=== PATIENT | female | born 1980 | race Caucasian/White ===

== ENCOUNTER 2017-11-16 14:01 | Outpatient (CLI) | payer MEDICAID ==
[~2017-11-16 14:01] MED LIST: TRAM50TA2 PO
[2017-11-16 14:12] VITALS: BP 109/60
== END 2017-11-16 14:55 | disposition home or self-care (01) ==
LOC: ORTHO 14:01
PROVIDERS: ATTEND Nurse Practitioner Family
DX: S52.502D Unspecified fracture of the lower end of left radius, subsequent encounter for closed fracture with routine healing (principal); S63.00 Unspecified subluxation and dislocation of wrist and hand; S82.122D Displaced fracture of lateral condyle of left tibia, subsequent encounter for closed fracture with routine healing; F12.90 Cannabis use, unspecified, uncomplicated; F17.210 Nicotine dependence, cigarettes, uncomplicated; Z88.5 Allergy status to narcotic agent; X58.XXXD Exposure to other specified factors, subsequent encounter
CPT/HCPCS: 29260; 73100; 73564

== ENCOUNTER 2017-12-07 14:21 | Outpatient (CLI) | payer MEDICAID ==
[2017-12-07 14:29] VITALS: BP 125/76
== END 2017-12-07 14:55 | disposition home or self-care (01) ==
LOC: ORTHO 14:21
PROVIDERS: ATTEND Nurse Practitioner Family
DX: S63.00 Unspecified subluxation and dislocation of wrist and hand (principal); S52.502D Unspecified fracture of the lower end of left radius, subsequent encounter for closed fracture with routine healing; S82.122G Displaced fracture of lateral condyle of left tibia, subsequent encounter for closed fracture with delayed healing; M17.12 Unilateral primary osteoarthritis, left knee; M19.032 Primary osteoarthritis, left wrist; F17.210 Nicotine dependence, cigarettes, uncomplicated; F12.90 Cannabis use, unspecified, uncomplicated; Z56.0 Unemployment, unspecified; Z88.6 Allergy status to analgesic agent; X58.XXXD Exposure to other specified factors, subsequent encounter
CPT/HCPCS: 73110; 73560

== ENCOUNTER 2022-10-16 01:32 | Emergency (ER) | payer MEDICAID ==
[~2022-10-16] VITALS: Ht 154.9 cm; Wt 85.0 kg
[2022-10-16] MEDS ORDERED: ondansetron 4mg rapidly disintigrating tab PO ONE (03:05)
[2022-10-16] MEDS ORDERED: ibuprofen tablet 400 MG TABLET PO ONE (03:05)
[2022-10-16] MEDS ORDERED: acetaminophen 325mg tablet PO ONE (03:05)
[2022-10-16 04:58] VITALS: BP 125/74
== END 2022-10-16 05:00 | disposition home or self-care (01) ==
LOC: ER 01:33
DX: J10.1 Influenza due to other identified influenza virus with other respiratory manifestations (principal); Z20.822 Contact with and (suspected) exposure to COVID-19; K21.9 Gastro-esophageal reflux disease without esophagitis; Z88.5 Allergy status to narcotic agent; Z79.899 Other long term (current) drug therapy; Z56.0 Unemployment, unspecified
CPT/HCPCS: 87502; 87503; 87635; 99284; C9803

== ENCOUNTER 2024-10-14 17:12 | Emergency (ER) | payer MEDICAID, OTHER ==
[~2024-10-14] VITALS: Ht 154.9 cm; Wt 81.5 kg
[2024-10-14 17:13] VITALS: BP 130/81; PULSE 103; RESP 16; TEMP 98.1; O2SAT 95
[2024-10-14] MEDS ORDERED: IBUP-1984 PO (18:36)
[2024-10-14] MEDS ORDERED: LIDO700A32 TD (18:36)
[2024-10-15] MEDS ORDERED: LIDOcaine 5% patch TP SCH (08:00)
== END 2024-10-14 18:55 | disposition home or self-care (01) ==
LOC: ER 17:12
DX: M77.8 Other enthesopathies, not elsewhere classified (principal); K21.9 Gastro-esophageal reflux disease without esophagitis; F17.210 Nicotine dependence, cigarettes, uncomplicated; Z88.5 Allergy status to narcotic agent; Z79.1 Long term (current) use of non-steroidal anti-inflammatories (NSAID); Z56.0 Unemployment, unspecified; Z72.89 Other problems related to lifestyle
CPT/HCPCS: 73030; 99283; A4565

== ENCOUNTER 2025-01-16 15:17 | Outpatient (CLI) | payer OTHER ==
[~2025-01-16 15:17] MED LIST changes: +LIDO700A32 TD
== END 2025-01-16 23:59 | disposition home or self-care (01) ==
LOC: MRI 15:17
PROVIDERS: ATTEND Physician Assistant Medical
DX: M75.101 Unspecified rotator cuff tear or rupture of right shoulder, not specified as traumatic (principal); M67.919 Unspecified disorder of synovium and tendon, unspecified shoulder
CPT/HCPCS: 73221

== ENCOUNTER 2025-07-21 12:00 | Emergency (ER) | payer SELFPAY ==
[~2025-07-21] VITALS: Ht 154.9 cm; Wt 88.5 kg
[~2025-07-21 12:00] MED LIST changes: +LIDO-52 TD; -LIDO700A32 TD
[2025-07-21 12:31] LABS: MEAN PLATELET VOLUME 6.6 FL (7.4-10.4); RED CELL DISTRIBUTION WIDTH 12.9 % (11.5-14.5)
[2025-07-21 12:47] LABS: CREATININE 0.78 MG/DL (0.40-0.90); TOTAL CARBON DIOXIDE 29.1 MMOL/L (24-32); eCRCL 69 ML/MIN; eGFR 80 ML/MIN
[2025-07-21 13:23] LABS: LEUKOCYTE ESTERASE ,URINE SMALL (Neg); NITRITES, URINE NEGATIVE (Neg); OCCULT BLOOD,URINE NEGATIVE (Neg)
[2025-07-21 13:26] LABS: URINE HCG NEGATIVE (NEG)
[2025-07-21 13:29] LABS: MUCUS STRANDS FEW /LPF (Neg); SQUAMOUS EPITHELIAL CELL,UR MANY /LPF (FEW); UA COLLECTION TYPE NON-SPECIFIED
[2025-07-21] MEDS: normal saline 1000ML IV soln IVB ONE (14:15)
[2025-07-21] MEDS: ketorolac trometh 30MG/ML vial 30 MG/ML VIAL IV ONE (14:24)
--- NOTE | 2025-07-21 14:32 | Physician Documentation ---
History of Present Illness Chief Complaint: Flank Pain Stated Complaint: FLANK PAIN Time Seen by MD: 14:08 Primary Medical Doctor: quan chaidez Source: patient Mode of Arrival: POV Exam Limitations: no limitations HPI Patient presented for flank pain that radiates to the anterior abdomen. Pain started in the left flank about a week ago and now wrapping around to her friend. Pain with patient is the left upper quadrant. No diarrhea. No nausea or vomiting. No fevers. History of significant alcoholism drinking about a half a pt per of hard alcohol per day. Smokes tobacco and marijuana daily. Denies past medical history. Medication Reconciliation Allergies: Coded Allergies: codeine (Verified Allergy, Unknown, 07/21/25) Scheduled Lidocaine (Lidoderm), 1 PATCH TD DAILY Scheduled PRN Tramadol Hcl (Tramadol Hcl), 1 TAB PO Q4HPRN PRN for pain, (Reported) Past Medical History Past Medical History: GERD Past Surgical History: orthopedic surgeries Smoking Status: Current every day smoker Alcohol Use: Heavy Drug Use: none Lives with: Father Lives In: Home Occupation: unemployed Review of Systems ROS Review of systems negative except specifically documented in HPI. Constitutional: Denies: chills, fever Respiratory: Reports: no symptoms reported Cardiovascular: Reports: no symptoms reported Gastrointestinal: Reports: abdominal pain; Denies: nausea, vomiting, diarrhea Genitourinary: Reports: no symptoms reported Female Genitalia: Reports: no reported symptoms Neurological: Reports: no symptoms reported Musculoskeletal: Reports: no symptoms reported Physical Exam Vital Signs: RN Vital Signs have been reviewed: Yes, Temperature: 97.3, Heart Rate: 97, Respiratory Rate: 18, BP: 121/81, Pulse Oximetry: 99, Weight: 88.500 Oxygen Flow Rate: 0 Pulse Oximetry Reflects: adequate oxygenation Physical Exam General: Awake, alert, oriented. No apparent distress. Respiratory: Lungs are clear to auscultation bilaterally. No respiratory distress. Chest: Normal shape and size. No accessory muscle use. Cardiovascular: Regular rate and rhythm. S1-S2. No murmur, gallop, rub. Gastrointestinal: Abdomen is soft. +tender to palpation left upper quadrent. +BS Back: Tenderness location is the left Thoracic area. No CVA tenderness on exa m. Neurologic: Alert and oriented x4. Nonfocal Psychiatric: Normal mood and affect. Skin: Normal color. Warm and dry. Progress Progress Note 1534: Patient is back from CT scanner. Complaining of significant pain in her back. No improvement with Toradol. Morphine ordered. Results/Orders Results/Orders Orders - ALBERTO JOSEPH NP Ketorolac Trometh 15mg/Ml Vial (Toradol (07/21/25 14:15) Ct Abdomen Pelvis (07/21/25 14:14) Completed Orders - ALBERTO JOSEPH NP Normal Saline 1000ml (0.9% Sodium Chlori (07/21/25 14:10) Medications Received in ER Medications (Trade) Dose Ordered Sig/Yael Route PRN Reason Start Time Stop Time Status Last Admin Dose Admin (0.9% sodium chloride (NS) 1000ml IV soln) 1,000 ml ONCE ONCE IVB 07/21/25 14:10 07/21/25 14:11 DC 07/21/25 14:15 1,000 ML Vital Signs 07/21/25 07/21/25 12:07 12:28 Temp 97.3 Pulse 97 Resp 18 B/P (MAP) 121/81 Pulse Ox 99 O2 Flow Rate 0 Laboratory Tests Test 07/21/25 12:23 07/21/25 13:00 White Blood Count 9.5 Red Blood Count 4.77 Hemoglobin 14.3 Hematocrit 43.2 Mean Corpuscular Volume 90.7 Mean Corpuscular Hemoglobin 29.9 Mean Corpuscular Hemoglobin Concent 33.0 Red Cell Distribution Width 12.9 Platelet Count 432 Mean Platelet Volume 6.6 L Neutrophils (%) (Auto) 72.9 Lymphocytes (%) (Auto) 20.1 L Monocytes (%) (Auto) 5.1 Eosinophils (%) (Auto) 1.3 Basophils (%) (Auto) 0.6 Neutrophils # (Auto) 6.9 Lymphocytes # (Auto) 1.9 Monocytes # (Auto) 0.5 Eosinophils # (Auto) 0.1 Basophils # (Auto) 0.1 CBC Comment Sodium Level 136 Potassium Level 4.0 Chloride Level 101 Carbon Dioxide Level 29.1 Anion Gap 6 L Blood Urea Nitrogen 10 Creatinine 0.78 Estimated GFR/1.73 m2 80 BUN/Creatinine Ratio 12.8 Glucose Level 98 Calcium Level 9.1 Total Bilirubin 0.4 Aspartate Amino Transf (AST/SGOT) 33 Alanine Aminotransferase (ALT/SGPT) 64 Alkaline Phosphatase 124 H Total Protein 7.9 Albumin 3.5 Globulin 4.4 H Albumin/Globulin Ratio 0.8 L Lipase 33 Chemistry Comments Urine Specimen Description Non-specified Urine Color Yellow Urine Clarity Clear Urine pH 6.0 Urine Specific Victor 1.010 Urine Protein Negative Urine Glucose (UA) Negative Urine Ketones Negative Urine Occult Blood Negative Urine Nitrite Negative Urine Bilirubin Negative Urine Urobilinogen 0.2 Urine Leukocyte Esterase Small H Urine RBC 0-2 Urine WBC 10-20 H Urine Squamous Epithelial Cells Many Urine Bacteria Few Urine Mucus Few Urine Culture Indicated Rejected for culture Volume Urine Centrifuged 10 ml Urine HCG, Qualitative Negative Urine Comment EKG/XRAY/CT/US/VASC/MRI CT : Interpreted By: radiologist CT: abdomen/pelvis With Contrast?: No Impression [address] [address] CAT SCAN Patient: LALIT GARY Medical Record: [id number] [facility] : 1980, Age: 45 Sex: Female Location: ER Patient Status: [facility] ER Service Date/Time: 07/21/251514 Ordering Physician: ALBERTO JOSEPH DISHTANK OPERATOR Exam: CT ABDOMEN PELVIS CLINICAL INFORMATION: Abdominal pain. TECHNIQUE: Axial CT images of the abdomen and pelvis were obtained after the uneventful administration of 100 mL Omnipaque 300 IV contrast. Coronal and sagittal reformatted images were obtained, reviewed, and stored. All CT scans at this medical facility are performed using dose modulation techniques as appropriate to a performed exam including the following: Automated exposure control was utilized; adjustment of the MA and/or KV according to patient size; and use of iterative reconstruction technique. CTDIvol = 32.28 mGy DLP = 1733.85 mGy-cm COMPARISON: None FINDINGS: Lung bases: Atelectasis in the lung bases. Liver: Hepatic steatosis. Biliary: No calcified gallstones or biliary ductal dilatation. Spleen: Unremarkable. Pancreas: Unremarkable. No inflammatory changes, ductal dilatation, or mass identified. Adrenal glands: Unremarkable. No mass. Kidneys: No hydronephrosis or mass. Aorta/Vascular: No aneurysm or significant calcification. Retroperitoneum: Mildly prominent bilateral external iliac lymph nodes with norm al reniform shape and fatty zoya, likely reactive lymph nodes. Bowel/mesentery: Nonspecific nondilated fluid-filled small bowel loops. No small bowel obstruction. No free air or free fluid in the abdomen or pelvis. Appendix is visualized and appears unremarkable. Pelvic organs: Grossly unremarkable. Bladder: Unremarkable. No mass. Abdominal wall: No mass or hernia. Bones: No acute fracture or focal intraosseous lesion. Prominent sclerosis adjacent to the pubic symphysis consistent with osteitis pubis. IMPRESSION: 1. Nonspecific nondilated fluid-filled small bowel loops. Findings may be seen with ileus or enteritis in the appropriate clinical setting. No small bowel obstruction. 2. Hepatic steatosis. 3. Additional nonacute findings as described above. Electronically Signed by:ALAN PEÑA DO Date & Time: 07/21/251535 Dictated by: ALAN PEÑA DO Dictation date and time: 07/21/251535 Primary Care Provider: NO PRIMARY CARE PROVIDER cc: ALBERTO JOSEPH DISHTANK OPERATOR ~ Medical Decision Making Findings Patient presents with left-sided back pain radiating to her left upper quadrant. She drinks alcohol heavily about a half a pt per day. Concern for pancreatitis. Lipase was within normal limits. Given her abdominal pain a CT scan was performed that did not show any acute intra-abdominal pathology. Her urine did not show an infection. CT scan did show hepatic steatosis. Was encouraged to follow up with primary care provider. No evidence of acute intra- abdominal emergency. Suspect viral enteritis. Encouraged to stay well hydrated. Return for new or worsening symptoms. Differential Dx:Considerations: Include: Appendicitis, Bowel obstruction, Cholangitis, Cholelithasis, Constipation, Diverticular disease, Gastritis/PUD, Gastroenteritis, GI hemorrhage, Hernia, Hepatitis, Inflammatory BD, Ischemic bowel, Pancreatitis Departure Time of Disposition: 16:28 Disposition: 01 HOME / SELF CARE / HOMELESS Impression: Primary Impression: Viral gastroenteritis Condition: Stable Discharge Instructions: Abdominal Pain, Adult, [id number] Additional Instructions: Laboratory evaluation was unremarkable. Your CT scan did not show anything specific. Suspect underlying viral gastroenteritis. Please stay well hydrated. As we discussed I recommend that you quit drinking alcohol. Recommend that you follow up with your primary care provider. You were given narcotic pain medication while here in the emergency department. Do not drive or operate heavy machinery while taking this medication. Please return for new or worsening symptoms. Referrals: NO PRIMARY CARE PROVIDER (PCP) Education Educated: Patient Educated regarding: diagnosis, treatment, prognosis, need for follow up Signature Scribe Signature: No scribe Attestation: The note accurately reflects work and decisions made by me.Alberto Young NP 07/21/25 19:58 This note was created with the assistance of voice recognition software whereby errors in grammar, syntax, and/or spelling may have occurred despite active proofreading efforts by the author. Please do not hesitate to contact the provider for clarification or for questions regarding the content of this document. ALBERTO JOSEPH NP Jul 21, 2025 14:32
--- NOTE | 2025-07-21 15:38 | RADIOLOGY REPORT ---
CLINICAL INFORMATION: Abdominal pain. TECHNIQUE: Axial CT images of the abdomen and pelvis were obtained after the uneventful administration of 100 mL Omnipaque 300 IV contrast. Coronal and sagittal reformatted images were obtained, reviewed, and stored. All CT scans at this medical facility are performed using dose modulation techniques as appropriate to a performed exam including the following: Automated exposure control was utilized; adjustment of the MA and/or KV according to patient size; and use of iterative reconstruction technique. CTDIvol = 32.28 mGy DLP = 1733.85 mGy-cm COMPARISON: None FINDINGS: Lung bases: Atelectasis in the lung bases. Liver: Hepatic steatosis. Biliary: No calcified gallstones or biliary ductal dilatation. Spleen: Unremarkable. Pancreas: Unremarkable. No inflammatory changes, ductal dilatation, or mass identified. Adrenal glands: Unremarkable. No mass. Kidneys: No hydronephrosis or mass. Aorta/Vascular: No aneurysm or significant calcification. Retroperitoneum: Mildly prominent bilateral external iliac lymph nodes with normal reniform shape and fatty zoya, likely reactive lymph nodes. Bowel/mesentery: Nonspecific nondilated fluid-filled small bowel loops. No small bowel obstruction. No free air or free fluid in the abdomen or pelvis. Appendix is visualized and appears unremarkable. Pelvic organs: Grossly unremarkable. Bladder: Unremarkable. No mass. Abdominal wall: No mass or hernia. Bones: No acute fracture or focal intraosseous lesion. Prominent sclerosis adjacent to the pubic symphysis consistent with osteitis pubis. IMPRESSION: 1. Nonspecific nondilated fluid-filled small bowel loops. Findings may be seen with ileus or enteritis in the appropriate clinical setting. No small bowel obstruction. 2. Hepatic steatosis. 3. Additional nonacute findings as described above.
[2025-07-21] MEDS: morphine 4 MG/ML inj SYRINge IV ONE (15:56)
[2025-07-21 16:57] VITALS: BP 111/83; PULSE 81; RESP 16; TEMP 98; O2SAT 98
== END 2025-07-21 16:58 | disposition home or self-care (01) ==
LOC: ER 12:01
DX: A08.4 Viral intestinal infection, unspecified (principal); F12.90 Cannabis use, unspecified, uncomplicated; F17.200 Nicotine dependence, unspecified, uncomplicated; Z88.5 Allergy status to narcotic agent; Z79.899 Other long term (current) drug therapy; Z56.0 Unemployment, unspecified
CPT/HCPCS: 36415; 74176; 80053; 81001; 81025; 83690; 85025; 96361; 96374; 96375; 99285; J1885; J2270; J7030

== ENCOUNTER 2025-09-18 12:18 | Emergency (ER) | payer OTHER ==
[~2025-09-18] VITALS: Ht 162.6 cm; Wt 81.8 kg
[2025-09-18 12:23] VITALS: BP 141/92; PULSE 100; RESP 16; TEMP 98.4; O2SAT 100
--- NOTE | 2025-09-18 12:29 | Physician Documentation ---
History of Present Illness ~ Chief Complaint: Laceration Stated Complaint: LAC THUMB Primary Medical Doctor: quan VEGA Patient is a very pleasant 45-year-old female that presents to the emergency department for evaluation of laceration to her right thumb sustained last night while washing a knife. Laceration appears very superficial at this time bleeding is controlled. We will evaluate further after cleansing to determine if sutures are needed or if this is a Dermabond repair. Tetanus Within 5 Years: Yes Medication Reconciliation Allergies: Coded Allergies: codeine (Verified Allergy, Unknown, 09/18/25) Scheduled Lidocaine (Lidoderm), 1 PATCH TD DAILY Scheduled PRN Tramadol Hcl (Tramadol Hcl), 1 TAB PO Q4HPRN PRN for pain, (Reported) Past Medical History Past Medical History: GERD Past Surgical History: orthopedic surgeries Alcohol Use: Heavy Drug Use: none Lives with: Father Lives In: Home Occupation: unemployed Physical Exam Vital Signs: Temperature: 98.4, Source: Temporal, Heart Rate: 100, Respiratory Rate: 16, BP: 141/92, Pulse Oximetry: 100, Weight: 81.820 Oxygen Flow Rate: 0 Progress Results/Orders Results/Orders Vital Signs 09/18/25 12:23 Temp 98.4 Pulse 100 Resp 16 B/P (MAP) 141/92 Pulse Ox 100 O2 Flow Rate 0 Departure Referrals: NO PRIMARY CARE PROVIDER (PCP) FRANKO LUCIO Sep 18, 2025 12:29
== END 2025-09-18 13:02 | disposition left against medical advice (07) ==
LOC: ER 12:19
DX: S61.011A Laceration without foreign body of right thumb without damage to nail, initial encounter (principal); Z88.5 Allergy status to narcotic agent; X58.XXXA Exposure to other specified factors, initial encounter; Y93.89 Activity, other specified; Y92.89 Other specified places as the place of occurrence of the external cause; Y99.8 Other external cause status
CPT/HCPCS: 99282